=== PATIENT | female | born 2000 | race Caucasian/White ===

== ENCOUNTER 2021-12-20 11:00 | Outpatient (CLI) | payer OTHER ==
[2021-12-21 16:08] LABS: SARS-CoV-2 PCR by NAA Not Detected (NotDetected)
== END 2021-12-20 11:01 | disposition home or self-care (01) ==
LOC: CSHLAB 11:00
PROVIDERS: ATTEND Advanced Practice Midwife
DX: Z20.822 Contact with and (suspected) exposure to COVID-19 (principal)
CPT/HCPCS: U0003; U0005

== ENCOUNTER 2021-12-24 19:30 | Inpatient (IN) | payer OTHER ==
[2021-12-25 22:48] VITALS: BMI 32.1
[2021-12-26] MEDS ORDERED: Lidocaine 1% (PF) 30 ML VIAL SC PRN (00:30)
[2021-12-26] MEDS ORDERED: Promethazine HCl 25 MG/ML VIAL IM PRN ×2 (00:30→09:02)
[2021-12-26] MEDS ORDERED: NS w/ Oxytocin 30 units 500 ML IV SCH ×2 (00:30→18:21)
[2021-12-26] MEDS ORDERED: NS w/ Oxytocin 30 units 500 ML IVPB SCH (00:30)
[2021-12-26] MEDS ORDERED: Acetaminophen 500 MG TAB PO PRN (00:30)
[2021-12-26] MEDS ORDERED: hydrALAZINE 20 MG/ML VIAL SLOW IVP PRN ×2 (00:30→18:21)
[2021-12-26] MEDS ORDERED: Misoprostol 100 MCG TAB VAG SCH (00:30)
[2021-12-26] MEDS ORDERED: Ondansetron PF 4 MG/2 ML Vial IVP PRN ×3 (00:30→18:21)
[2021-12-26] MEDS: Butorphanol Tartrate 1 MG/ML VIAL SLOW IVP PRN ×3 (01:24→07:10)
[2021-12-26 01:32] LABS: Hemoglobin 11.2 g/dL (12.0-15.5); Mean Corpuscular HGB CONC 32.2 g/dL (32.0-36.0); Mean Corpuscular Hemoglobin 25.2 pg (27.0-33.0); Mean Corpuscular Volume 78.4 fl (81.6-98.3); Mean Platelet Volume 11.2 fl (7.4-10.4); Platelet Count 298 10x3/uL (150-450); Red Blood Cell (RBC) Count 4.44 10x6/uL (3.90-5.03); White Blood Cell (WBC) Count 11.8 10x3/uL (3.5-10.5)
[2021-12-26 02:07] LABS: Syphilis Antibody Nonreactive (Nonreactive); Syphilis Antibody Index 0.06 S/CO (<1.00 Non-Reactive)
[2021-12-26 02:08] LABS: Hep B Surf Ag Non-Reactive S/CO (NonReactive)
[2021-12-26] MEDS ORDERED: Misoprostol 100 MCG TAB PO SCH (03:00)
[2021-12-26] MEDS: Lactated Ringer's 1,000 ML IV SCH ×2 (06:03→11:36)
[2021-12-26] MEDS ORDERED: Fentanyl 2 mcg/Bup 0.1% Cadd 100 ML ONE (07:35)
[2021-12-26] MEDS ORDERED: Acetaminophen 325 MG TAB PO PRN (09:02)
[2021-12-26] MEDS ORDERED: ePHEDrine Sulfate 50 MG/10 ML VIAL SLOW IVP PRN (09:02)
[2021-12-26] MEDS ORDERED: Naloxone HCl 0.4 mg/ml Vial IVP PRN ×2 (09:02)
[2021-12-26] MEDS ORDERED: Lactated Ringer's 500 ML IV PRN (09:02)
[2021-12-26] MEDS ORDERED: diphenhydrAMINE 50 MG/ML VIAL IVP PRN (09:02)
[2021-12-26] MEDS ORDERED: Moisturizing Cream (Eucerin) 113 GM JAR TOP PRN (09:02)
[2021-12-26] MEDS ORDERED: Fentanyl 2 mcg/Bupivacaine 0.1% Cassette 100 ML EPIDURAL SCH (09:15)
[2021-12-26] MEDS ORDERED: Communication Order-Pharmacy FS SCH (09:15)
[2021-12-26 11:26] LABS: Anion Gap 14 mmol/L (10-20); BUN (Urea Nitrogen) 9 mg/dL (7.0-18.7); Calc. Creatinine Clearance 214 mL/min (70-130); Calcium 8.8 mg/dL (7.8-10.44); Carbon Dioxide 19 mmol/L (22-29); Chloride 108 mmol/L (98-107); Glucose 95 mg/dL (70-105); Potassium 3.9 mmol/L (3.5-5.1); Sodium 137 mmol/L (136-145)
[2021-12-26] MEDS ORDERED: Benzocaine-Menthol 82.5 ML CAN TOP PRN (18:21)
[2021-12-26] MEDS ORDERED: Misoprostol 200 MCG TAB VAG PRN (18:21)
[2021-12-26] MEDS ORDERED: Boostrix 0.5 ML (Tdap) VIAL IM ONE (18:21)
[2021-12-26] MEDS ORDERED: Milk Of Magnesia 30 ML UDCUP PO PRN (18:21)
[2021-12-26] MEDS ORDERED: Bisacodyl 10 MG SUPP PR PRN (18:21)
[2021-12-26] MEDS ORDERED: Lanolin Ointment 7 GM TUBE TOP PRN (18:21)
[2021-12-26] MEDS ORDERED: Ferrous Sulfate 325 MG TAB PO SCH (18:30)
[2021-12-26] MEDS: HYDROcodone/Acetaminophen 5/325 mg Tablet PO PRN (20:35)
[2021-12-27] MEDS: HYDROcodone/Acetaminophen 5/325 mg Tablet PO PRN ×4 (03:35→20:55)
[2021-12-27] MEDS: Ferrous Sulfate 325 MG TAB PO SCH ×2 (08:38→17:52)
[2021-12-27] MEDS: Docusate 100 MG CAP PO SCH ×2 (08:45→20:55)
[2021-12-27] MEDS: Prenatal Vitamin 1 TAB PO SCH (08:45)
[2021-12-27] MEDS ORDERED: Preparation H Ointment 28 GM TUBE TOP PRN (09:38)
[2021-12-27] MEDS: Ibuprofen 800 MG TAB PO SCH ×2 (10:08→17:51)
[2021-12-27] MEDS ORDERED: Witch Hazel-Glycerin 1 EACH JAR TOP PRN (16:33)
[2021-12-27] MEDS: Naproxen 500 MG TAB PO PRN (19:55)
[2021-12-27] MEDS ORDERED: Hydrocortisone 2.5%/Pramoxine 1% CRM 30 GM TUBE TOP SCH (21:00)
[2021-12-28] MEDS: Ibuprofen 800 MG TAB PO SCH ×3 (03:18→13:40)
[2021-12-28] MEDS: Docusate 100 MG CAP PO SCH ×2 (04:32→08:25)
[2021-12-28] MEDS ORDERED: Hydrocortisone/Pramoxine (Proctofoam HC) 10 GM BOX TOP SCH ×2 (04:45→09:00)
[2021-12-28] MEDS: Prenatal Vitamin 1 TAB PO SCH (08:25)
[2021-12-28] MEDS: Naproxen 500 MG TAB PO PRN ×2 (09:07→13:39)
[2021-12-28 13:47] VITALS: TEMP 98.3
[2021-12-28 19:17] VITALS: BP 118/65
== END 2021-12-28 16:00 | disposition home or self-care (01) | DRG 805 ==
LOC: CSHLD 12-25 22:01 → UNDOADMIN 12-25 22:01 → CSHLD 12-26 00:17 → CSHPP 12-26 18:34
PROVIDERS: ADMIT Obstetrics & Gynecology; ATTEND Obstetrics & Gynecology
PROC: 10E0XZZ Delivery of Products of Conception, External Approach (ICD-10-PCS; principal; 2021-12-26)
PROC: 0HQ9XZZ Repair Perineum Skin, External Approach (ICD-10-PCS; 2021-12-26)
DX: O99.344 Other mental disorders complicating childbirth (principal); O99.42 Diseases of the circulatory system complicating childbirth; Z37.0 Single live birth; O87.2 Hemorrhoids in the puerperium; F41.9 Anxiety disorder, unspecified; F32.A Depression, unspecified; I73.00 Raynaud's syndrome without gangrene; Z88.1 Allergy status to other antibiotic agents; Z3A.40 40 weeks gestation of pregnancy; O70.0 First degree perineal laceration during delivery; O32.6XX0 Maternal care for compound presentation, not applicable or unspecified; O69.3XX0 Labor and delivery complicated by short cord, not applicable or unspecified
CPT/HCPCS: 51702; 80048; 84156; 85027; 86780; 86850; 86900; 86901; 87340; J0595; J2405; J2550; J2590; J7120